=== PATIENT | female | born 1995 | race Hispanic/Latino ===

== ENCOUNTER 2016-12-31 00:49 | Emergency (ER) | payer OTHER ==
[~2016-12-31] VITALS: Ht 149.9 cm; Wt 86.6 kg
[~2016-12-31 00:49] MED LIST: ASPIRIN EC325 MG PO; HUMIRA (4040 MG/0.8 SC; IBUPROFEN800 M1 PO; IMODIUM2 MG PO; JUNEL FE 1/20 21 TAB PO; LEVSIN/SL0.125 MG SL; METFORMIN HCL500 M4 PO; MOTRIN 800MG T800 MG PO; Nasal NAS; PERCOCET 325 MG1 TA2 PO; PERCOCET 5-3251 EACH PO; VICODIN 5-3001 EACH PO
--- NOTE | 2016-12-31 01:50 | ED AMS/SEIZURE/WEAK/DIZZY ---
History of Present Illness General Chief Complaint: General Adult Stated Complaint: AMS BIB PRIVATE CAR Source: patient, old records Exam Limitations: clinical condition Vital Signs & Intake/Output Vital Signs & Intake/Output Vital Signs Date Time Temp Pulse Resp B/P B/P Pulse O2 O2 Flow FiO2 Mean Ox Delivery Rate 12/31 0756 98.1 81 18 116/62 98 Room Air 12/31 0529 97.6 86 18 106/66 97 Room Air 12/31 0233 97.5 93 20 120/67 96 Room Air 12/31 0101 98.1 104 20 137/78 98 Room Air Allergies Coded Allergies: Penicillins (Intermediate, ANAPHYLAXIS 12/31/16) Triage Note: TRIAGE: PATIENT TO ER FROM HOME W/ SPOUSE REPORTING +N/V X FEW DAYS, 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 HX DIABETES, FINGERSTICK IN PROGRESS. DENIES ANY ABD PAIN/ DIARRHEA. CURRENTLY ON MENSES. Triage Nurses Notes Reviewed? yes Onset: Gradual Duration: day(s): (3) Timing: recent history Injury Environment: home Severity: moderate, severe No Modifying Factors: none Associated Symptoms: NAUSEA, VOMITING, PASSING OUT : No Patient currently breastfeeds: No HPI: 21 year old female with 3 day history of LLQ pain, nausea, vomiting and heache. Patient did not take anything at home. Symptoms are worse with food. Denies chance of , but skipped her period last week. Admits to some pink spotting. (ALVAREZ TURCIOS,WHITLYE) Reconcile Medications Ibuprofen 800 MG TABLET 1 TAB PO PRN PAIN (Reported) Meclizine HCl 25 MG TABLET 1 TAB PO TIDPRN PRN dizziness Metoclopramide HCl (Reglan) 10 MG TABLET 1 TAB PO 4 TIMES/DAY PRN vomiting 30 minutes before meals and bedtime Ondansetron (Zofran Odt) 4 MG TAB.RAPDIS 1 TAB SL TID PRN nausea Oxycodone HCl/Acetaminophen (Percocet 5-325 MG Tablet) 1 EACH TABLET 1-2 TAB PO Q6P PRN PAIN (UMESH TURCIOS,ENIO) Past History Travel History Traveled to [place] past 21 day No Medical History Any Pertinent Medical History? 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 No (WHITLEY PINO MD) Review of Systems Review of Systems Constitutional: Denies: chills, fever. EENTM: Reports: no symptoms. Respiratory: Denies: hemoptysis, short of breath, sputum production. Cardiovascular: Denies: chest pain. GI: Reports: abdominal pain, nausea, vomiting. Genitourinary: Denies: discharge, dysuria, frequency, hematuria. Musculoskeletal: Denies: back pain. Skin: Reports: no symptoms. Neurological/Psychological: Reports: anxiety. Hematologic/Endocrine: Reports: bleeding (VAGINAL SPOTTING). Denies: bruising, polyuria, other. Immunologic/Allergic: Denies: splenectomy. All Other Systems: Reviewed and Negative (WHITLEY PINO MD) Physical Exam Physical Exam General Appearance: well developed/nourished, alert, awake, mild distress, SLOW TO RESPOND Head: atraumatic, normal appearance Eyes: Bilateral: PERRL. Ears, Nose, Throat: normal pharynx Neck: normal inspection, supple, full range of motion Respiratory: normal breath sounds, chest non-tender, no respiratory distress Cardiovascular: regular rate/rhythm Peripheral Pulses: 2+ radial (R), 2+ radial (L) Gastrointestinal: normal bowel sounds, soft, tenderness (LLQ, LEFT FLANK) Extremities: normal range of motion Neurologic/Psych: awake, alert, oriented x 3 Skin: intact, normal color, warm/dry Core Measures ACS in differential dx? No CVA/TIA Diagnosis: No Severe Sepsis Present: No Septic Shock Present: No (WHITLEY PINO MD) Progress Differential Diagnosis: UTI/pyelo, , ECTOPIC, ENDOMETRIOSIS, RENAL COLIC, PERFORATED BOWEL Plan of Care: Orders Procedure Date/time Status Add-on Test (ER Only) 12/31 310 Active MISTAKE 01/01 156 Active EKG 01/01 156 Active PARTIAL THROMBOPLASTIN TIME 12/31 150 Complete PROTHROMBIN TIME 12/31 150 Complete HUMAN BETA HCG TITRE 12/31 150 Complete TYPE & SCREEN (NOT X-MATCH) 12/31 150 Complete COMPREHENSIVE METABOLIC PANEL 12/31 149 Complete CBC WITHOUT DIFFERENTIAL 12/31 149 Complete URINALYSIS 01/01 148 Complete URINE DRUGS OF ABUSE 12/31 124 Complete URINE 12/31 124 Complete Laboratory Tests 12/31/16214: Beta HCG, Quant < 2.4 12/31/16214: Anion Gap 13, Estimated GFR > 60, BUN/Creatinine Ratio 22.5, Glucose 102 H, Calcium 9.6, Total Bilirubin 0.5, AST 39 H, ALT 75 H, Alkaline Phosphatase 67, Total Protein 7.7, Albumin 4.6, Globulin 3.1, Albumin/Globulin Ratio 1.5, PT 11.7, INR 1.12, APTT 39 H, CBC w Diff NO MAN DIFF REQ, RBC 5.10, MCV 74.2 L, MCH 24.2 L, RDW 14.6 H, MPV 9.4, Gran % 56.0, Lymphocytes % 33.6, Monocytes % 8.3, Eosinophils % 1.7, Basophils % 0.4, Absolute Granulocytes 5.2, Absolute Lymphocytes 3.1, Absolute Monocytes 0.8 H, Absolute Eosinophils 0.2, Absolute Basophils 0, PUBS MCHC 32.7 L 12/31/16 0148: Urine Opiates Screen < 100.00, Methadone Screen < 40, Barbiturate Screen < 60, Ur Phencyclidine Scrn < 6.00, Amphetamines Screen < 100, U Benzodiazepines Scrn < 85, Urine Cocaine Screen < 50, Urine Cannabis Screen < 5.00, Urine Color STRAW , Urine Clarity HAZY H, Urine pH 6.0, Ur Specific [place] 1.010, Urine Protein 100 H, Urine Ketones NEG, Urine Nitrite NEG, Urine Bilirubin NEG, Urine Urobilinogen 0.2, Ur Leukocyte Esterase NEG, Ur Microscopic SEDIMENT EXAMINED, Urine RBC 3-5, Urine WBC 1-3 H, Ur Epithelial Cells MOD H, Urine Bacteria FEW H, Urine Hemoglobin MOD H, Urine Glucose NEG, Urine Test NEGATIVE Diagnostic Imaging: Viewed by Me: CT Scan, Ultrasound. Discussed w/RAD: CT Scan, Ultrasound. Radiology Impression: PATIENT: PAM LEAL PRESENT AGE: 21 PATIENT ACCOUNT NO: [id number] : 94 LOCATION: [facility] ORDERING PHYSICIAN: WHITLEY PINO MD SERVICE DATE: 12/31/16 EXAM TYPE: CAT - CT ABD & PELVIS W IV CONTRAST EXAMINATION: CT ABDOMEN AND PELVIS WITH CONTRAST CLINICAL INFORMATION: Left lower quadrant abdominal pain times a few days. Vomiting. COMPARISON: CT scan of the abdomen and pelvis 02/22/2016. TECHNIQUE: Multidetector volumetric imaging was performed of the abdomen and pelvis before and after the IV administration of 95 mL of Optiray 320 intravenous contrast. Sagittal and coronal reformatted images were obtained on the technologist's workstation. DLP: 698.64 mGy-cm FINDINGS: LUNG BASES: Lung bases are clear. There is no pleural or pericardial effusion. LIVER, GALLBLADDER, AND BILIARY TREE: Liver attenuation and enhancement is homogeneous and there is no evidence of a discrete hepatic parenchymal mass. Liver attenuation is diffusely diminished which may indicate the presence of underlying steatosis. The gallbladder is unremarkable with no evidence of radiopaque gallstones, gallbladder wall thickening, or obvious pericholecystic inflammatory changes. PANCREAS: Unremarkable. SPLEEN: Unremarkable. ADRENAL GLANDS: Unremarkable. KIDNEYS AND URETERS: There is scarring at the posterior aspect of the interpolar left kidney and a tiny cyst at the lower pole of the right kidney. These findings have remained unchanged from prior imaging. Kidneys demonstrate symmetric nephrographic enhancement. There is no hydronephrosis. No abnormal perinephric inflammation or collection. No abnormal mass or calcifications visualized along the expected course of the right or left ureters. BLADDER: Unremarkable. GASTROINTESTINAL TRACT: There are chronic changes of an appendectomy. Stomach and small bowel are normal. Colon is normal. ABDOMINAL WALL: No significant hernia is appreciated. LYMPH NODES: There are no pathologically enlarged mesenteric or retroperitoneal lymph nodes. VASCULAR: Abdominal aorta and inferior vena cava are normal. PELVIC VISCERA: There is an anteverted uterus. A complex left adnexal lesion remains largely unchanged when compared to the most recent prior CT scan of the abdomen and pelvis from 2015. It measures 4.6 x 3.7 cm in AP by transverse dimensions. There is no free pelvic fluid. OSSEOUS STRUCTURES: There is no acute osseous finding. IMPRESSION: A complex left adnexal lesion is redemonstrated and it has not substantially changed when compared to prior imaging. The capability of accurately evaluating the pelvic anatomy is however limited with CT. If there is a clinical concern for ovarian torsion then an ultrasound can be obtained for better anatomic characterization of the ovaries. DICTATED BY: HEBER CAMACHO MD DATE/TIME DICTATED:12/31/16439 DOMESTIC VIOLENCE COUNSELOR:ANGEL DATE/TIME TRANSCRIBED:439 CONFIDENTIAL, DO NOT COPY WITHOUT APPROPRIATE AUTHORIZATION. < Electronically signed in Other Vendor System> SIGNED BY: HEBER CAMACHO MD 12/31/16 0459 Initial ED EKG: NSR Hand-Off Endorsed To: ENIO CALVO MD Endorsed Time: 0700 Pending: ultrasound (WHITLEY PINO MD) Radiology Impression: The uterus and right ovary are within normal limits. Enlargement of the left ovary with an estimated volume of 51 mL. On 05/31/16 the estimated left ovarian volume was 135 mL. The persistent complex enlargement of the left ovary is of uncertain etiology. This has decreased significantly in overall volume. 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 Prescriptions: Current Visit Scripts Ondansetron (Zofran Odt) 1 TAB SL TID PRN nausea #10 TAB Meclizine HCl 1 TAB PO TIDPRN PRN dizziness #30 TAB Metoclopramide HCl (Reglan) 1 TAB PO 4 TIMES/DAY PRN vomiting #120 TAB 30 minutes before meals and bedtime (ENIO CALVO MD)
[2016-12-31 02:52] LABS: PT 11.7 SEC (9.4-12.5); PTT 39 SEC (25-37)
[2016-12-31 02:55] LABS: ABSOLUTE BASOPHIL COUNT 0 /CUMM (0.0-0.2); ABSOLUTE EOSINOPHIL COUNT 0.2 /CUMM (0.0-0.7); ABSOLUTE GRANULOCYTE CT 5.2 /CUMM (1.4-6.5); ABSOLUTE LYMPH COUNT 3.1 /CUMM (1.2-3.4); ABSOLUTE MONOCYTE COUNT 0.8 /CUMM (0.10-0.60); BASOPHIL % 0.4 % (0.0-2.0); EOSINOPHIL % 1.7 % (0-5); HEMATOCRIT 37.8 % (37-47); MEAN CORPUSCULAR HGB 24.2 PG (27.0-31.0); MEAN CORPUSCULAR HGB CONC 32.7 G/DL (33.0-37.0); MEAN CORPUSCULAR VOLUME 74.2 FL (81.0-99.0); MEAN PLATELET VOLUME 9.4 FL (7.4-10.4); PLATELET COUNT 248 /CUMM (130-400); RBC DISTRIBUTION WIDTH 14.6 % (11.5-14.5); WHITE BLOOD CELL COUNT 9.3 /CUMM (4.8-10.8)
--- NOTE | 2016-12-31 04:59 | CT SCAN REPORT ---
EXAMINATION: CT ABDOMEN AND PELVIS WITH CONTRAST CLINICAL INFORMATION: Left lower quadrant abdominal pain times a few days. Vomiting. COMPARISON: CT scan of the abdomen and pelvis 02/22/2016. TECHNIQUE: Multidetector volumetric imaging was performed of the abdomen and pelvis before and after the IV administration of 95 mL of Optiray 320 intravenous contrast. Sagittal and coronal reformatted images were obtained on the technologist's workstation. DLP: 698.64 mGy-cm FINDINGS: LUNG BASES: Lung bases are clear. There is no pleural or pericardial effusion. LIVER, GALLBLADDER, AND BILIARY TREE: Liver attenuation and enhancement is homogeneous and there is no evidence of a discrete hepatic parenchymal mass. Liver attenuation is diffusely diminished which may indicate the presence of underlying steatosis. The gallbladder is unremarkable with no evidence of radiopaque gallstones, gallbladder wall thickening, or obvious pericholecystic inflammatory changes. PANCREAS: Unremarkable. SPLEEN: Unremarkable. ADRENAL GLANDS: Unremarkable. KIDNEYS AND URETERS: There is scarring at the posterior aspect of the interpolar left kidney and a tiny cyst at the lower pole of the right kidney. These findings have remained unchanged from prior imaging. Kidneys demonstrate symmetric nephrographic enhancement. There is no hydronephrosis. No abnormal perinephric inflammation or collection. No abnormal mass or calcifications visualized along the expected course of the right or left ureters. BLADDER: Unremarkable. GASTROINTESTINAL TRACT: There are chronic changes of an appendectomy. Stomach and small bowel are normal. Colon is normal. ABDOMINAL WALL: No significant hernia is appreciated. LYMPH NODES: There are no pathologically enlarged mesenteric or retroperitoneal lymph nodes. VASCULAR: Abdominal aorta and inferior vena cava are normal. PELVIC VISCERA: There is an anteverted uterus. A complex left adnexal lesion remains largely unchanged when compared to the most recent prior CT scan of the abdomen and pelvis from 02/22/2016. It measures 4.6 x 3.7 cm in AP by transverse dimensions. There is no free pelvic fluid. OSSEOUS STRUCTURES: There is no acute osseous finding. IMPRESSION: A complex left adnexal lesion is redemonstrated and it has not substantially changed when compared to prior imaging. The capability of accurately evaluating the pelvic anatomy is however limited with CT. If there is a clinical concern for ovarian torsion then an ultrasound can be obtained for better anatomic characterization of the ovaries.
--- NOTE | 2016-12-31 09:29 | ULTRASOUND REPORT ---
EXAMINATION: US TRANSVAGINAL CLINICAL INFORMATION: Complex mass. Left lower quadrant pain for [address] COMPARISON: Portions of a CT 12/31/16 TECHNIQUE: Transcutaneous and transvaginal pelvic ultrasound The patient was asked to void completely and reexamined vaginally to better characterize a left adnexal mass. Color mapping. Spectral analysis. FINDINGS: The uterus measures 7.6 x 4.0 x 5.8 cm. The uterus is anteverted. No suspicious abnormality in the expected region of vagina. The cervical length is approximately 2.4 cm. No suspicious abnormality of the cervix. The endometrium is smooth and homogeneous. The endometrium measures 0.7 cm. No definite focal abnormality. The junctional zone appears intact. The myometrium is homogeneous. Uterine contour is smooth. The right ovary measures approximately 2.1 x 1.1 x 1.6 cm. The estimated right ovarian finding is approximately 2 mL. There is a 0.3 cm echogenic area within the right ovary which is nonspecific. The left ovary measures approximately 5.2 x 4.8 x 3.8 cm. The estimated left ovarian volume is approximately 51 mL. On 05/31/16 the left ovary measured 8.0 x 6.1 x 5.2 cm. There is a complex cystic abnormality encompassing the region of the left ovary with thin internal septations. There is posterior enhancement. There is some color signal. One of the largest individual cystic components measures 3.0 x 3.0 x 2.9 cm. No significant free pelvic fluid There is color signal present and vascular spectra were obtained from the right ovary. There is some color signal and there are vascular spectra obtained from the margins of the left ovary IMPRESSION: The uterus and right ovary are within normal limits. Enlargement of the left ovary with an estimated volume of 51 mL. On 05/31/16 the estimated left ovarian volume was 135 mL. The persistent complex enlargement of the left ovary is of uncertain etiology. This has decreased significantly in overall volume. If no intervention is undertaken follow-up recommended
[2016-12-31] MEDS ORDERED: MECLIZINE HCL25 MG PO (09:53)
[2016-12-31] MEDS ORDERED: ZOFRAN ODT4 M1 SL (09:53)
[2016-12-31] MEDS ORDERED: REGLAN10 M1 PO (09:57)
[2016-12-31 10:04] VITALS: BP 118/74
== END 2016-12-31 10:08 ==
LOC: ERH 00:49
PROVIDERS: Emergency Medicine
DX: R55 Syncope and collapse (principal); R10.32 Left lower quadrant pain; R11.2 Nausea with vomiting, unspecified
CPT/HCPCS: 74177; 80307; 81001; 81025; 93005; 93010; 96361; 96365; 96375; J0131; J1885; J2405

== ENCOUNTER 2017-09-25 22:46 | Emergency (ER) | payer OTHER ==
[~2017-09-25] VITALS: Ht 149.9 cm; Wt 88.0 kg
[~2017-09-25 22:46] MED LIST changes: +CIPRO500 M1 PO; +MECLIZINE HCL25 MG PO; +METFORMIN HCL500 M3 PO; +MOBIC15 M1 PO; +NORCO 5-325 TA1 EACH PO; +REGLAN10 M1 PO; +STELARA45 MG/0.1 INJ; +ZOFRAN ODT4 M1 SL
[2017-09-26 00:51] VITALS: BP 116/72
== END 2017-09-26 02:11 | disposition admitted as inpatient to this hospital (09) ==
LOC: ERH 22:46
DX: G43.909 Migraine, unspecified, not intractable, without status migrainosus (principal)
CPT/HCPCS: 81001; 81025; 99281